=== PATIENT | male | born 1945 | race Caucasian/White ===

== ENCOUNTER 2024-07-27 14:21 | Outpatient (AMB) | payer OTHER, SELFPAY ==
--- NOTE | 2024-07-27 14:23 | A.OFFVIS_ITS ---
Vital Signs 07/27/24 14:29 Height 5 ft 11 in BP 118/76 Blood Pressure Location Rt brachial Position Sitting Pulse 54 Pulse Source Pulse Oximeter Pulse Oximetry (%) 98 Oxygen Delivery Method Room Air Intake Visit Reasons: E-IMPLEMENTATION PROJECT COORDINATOR: Parkinson's Intake Note: [facility] Allergies pravastatin Allergy (Unknown, Verified 07/27/24 14:26) Unknown simvastatin Allergy (Unknown, Verified 07/27/24 14:26) Unknown Medication List - Last Reconciled 07/27/24 by Maritza Otto MD atorvastatin 40 mg PO DAILY B-complex with vitamin C 1 cap PO DAILY carbidopa-levodopa 25-100 mg 2 tabs PO QID cholecalciferol (vitamin D3) 25 mcg PO DAILY lisinopril 10 mg PO DAILY mirtazapine 15 mg PO BEDTIME sertraline 100 mg PO DAILY HPI Comments Details: 79y/o Right handed [facility]. He was diagnosed with Parkinsons [address] Carrero at [facility] . His initia l symptoms were slowness , difficulty with movements and mild tremor sleft more than right. After Dr. Carrero left the practice and he started going to [facility] for Ilan Larson. His symptoms has worsened and now he has frequent falls.He uses a walker and still falls. Memory- mild short term issues. No hallucinations SLeep- loud snoring , excessive daytime fatigue 1 nap -20-30min, He used to have leg movements. No vivid dreams Mood-good SPeech- softer Drooling at night Swallowing - mild , coughs more Handwriting- small Dressing and showering- uses a shower chair and needs help Needs help with utensils He has on and off dizziness - 2 episodes of passing out - He has ostomy bag - Colon ca - 5 years ago - recurrence 18 mths ago .No chemo He was in [place] and exposed to [employer]. He used Round up in his lawn He has constipation - drinks 8 glasses.He takes miralax qd. [facility] Medical History (Updated 07/27/24 @ 15:09 by Maritza Otto MD) Parkinson's disease with neurogenic orthostatic hypotension PTSD (post-traumatic stress disorder) Fuentes syndrome Lung nodule HTN (hypertension) Hyperlipidemia Glaucoma Depression Carcinoma of colon Arthritis Anxiety Surgical History H/O right knee surgery H/O hemicolectomy Family History Father Cancer, colon Brother Cancer, colon Paternal Uncle History of cancer Social History Alcohol intake: current Patient Tobacco Use Status: Former Tobacco user Physical Exam Vital Signs: Last Vital Signs Pulse 54 07/27/24 14:29 BP 118/76 07/27/24 14:29 Pulse Ox 98 07/27/24 14:29 Oxygen Delivery Method Room Air 07/27/24 14:29 Const General: cooperative, comfortable and no acute distress Nutritional Appearance: average body habitus Orientation/consciousness: patient oriented x3 Neuro Other: asymmetry face - due to jaw issues Mild decreased facial expression and blink No tremors No cog wheel rigidity - UE Le increased tone FFM mild decreased Foot taps severely decreased Speech- hypophonia , Gait with cane slow , stooped , small steps and off balance, high risk of falls General: patient oriented x3, moves all extremities and no focal motor deficits Cranial nerves: Yes Facial sensation intact/muscles of mastication intact, Yes Bilaterally intact EOM present, Yes Nystagmus not present, Yes Normal facial strength present, Yes Midline tongue present and Yes Ability to bilaterally elevate shoulders present Cognition (Neuro): normal cognition Motor exam (neuro): 5/5 motor strength present throughout Deep tendon reflexes (DTR's): Right triceps reflex intensity grade: 2+, Left triceps reflex intensity grade: 2+, Rt Biceps (C5, C6): 2+, Left biceps reflex intensity grade: 2+, Right brachioradialis reflex intensity grade: 2+, Left brachioradialis reflex intensity grade: 2+, Right patellar reflex intensity grade: 3+ and Left patellar reflex intensity grade: 3+ Coordination: [id number]-vl-[id number] test normal Assessment & Plan Assessment & Plan (1) Parkinson's disease with neurogenic orthostatic hypotension: Code(s): G90.3 - Multi-system degeneration of the autonomic nervous system Category: Medical Plan Change carbidopa/levodopa 25/100 1 1/2 tab 9am,12 noon,3pm,6pm,10pm He will be a good patient for Vyalev - to prevent fluctuations MRI report from [facility] PT - for gait training Orders: Orders PT Evaluation and Treatment Today G90.3 - Multi-system degeneration of the autonomic nervous system Coding Level of Care Code New Pt Level 4 (66692) Complex EM visit Add On G2211 Diagnoses Parkinson's disease with neurogenic orthostatic hypotension G90.3
[2024-07-27 14:29] VITALS: BP 118/76; PULSE 54; O2SAT 98
== END 2024-07-27 15:25 | disposition home or self-care (01) ==
LOC: HO.HSMS 14:21
PROVIDERS: PCP Internal Medicine; Visit Provider Psychiatry & Neurology Neurology
DX: G90.3 Multi-system degeneration of the autonomic nervous system (principal)
CPT/HCPCS: 99204; G2211

== ENCOUNTER → 2024-07-27 14:21 | Outpatient (BNVA) | payer OTHER, SELFPAY | PROVIDERS: PCP Internal Medicine; Visit Provider Psychiatry & Neurology Neurology | DX: G90.3 Multi-system degeneration of the autonomic nervous system (principal) | CPT/HCPCS: 99202 ==

== ENCOUNTER → 2024-10-12 10:00 | Outpatient (REF) | payer OTHER, SELFPAY | LOC: HO.SL 10:00 | PROVIDERS: PCP Internal Medicine; Referring Provider Psychiatry & Neurology Neurology; Visit Provider Psychiatry & Neurology Neurology | DX: G47.33 Obstructive sleep apnea (adult) (pediatric) (principal); R06.83 Snoring; G47.10 Hypersomnia, unspecified | CPT/HCPCS: 95806 ==

== ENCOUNTER → 2024-10-12 10:28 | Outpatient (BNV) | payer OTHER, SELFPAY | PROVIDERS: PCP Internal Medicine; Visit Provider Internal Medicine | DX: G47.33 Obstructive sleep apnea (adult) (pediatric) (principal) | CPT/HCPCS: 95806 ==

== ENCOUNTER 2024-11-23 14:54 | Outpatient (AMB) | payer OTHER, SELFPAY ==
--- NOTE | 2024-11-23 14:55 | A.OFFVIS_ITS ---
Vital Signs 11/23/24 14:56 Height 5 ft 11 in Weight 151 lb 6 oz BMI 21.1 BP 122/74 Blood Pressure Location Rt brachial Position Sitting Pulse 52 Pulse Source Pulse Oximeter Pulse Oximetry (%) 99 Oxygen Delivery Method Room Air Intake Visit Reasons: 4mon follow-up Intake Note: Follow up Parkinson's disease with neurogenic orthostatic hypotension Fashion Director Party Plan Sales Required: No Accompanied by: Spouse Allergies pravastatin Allergy (Unknown, Verified 11/23/24 14:56) Unknown simvastatin Allergy (Unknown, Verified 11/23/24 14:56) Unknown Medication List - Last Reconciled 11/23/24 by Maritza Otto MD atorvastatin 40 mg PO DAILY B-complex with vitamin C 1 cap PO DAILY carbidopa-levodopa 25-100 mg 2 tabs PO QID cholecalciferol (vitamin D3) 25 mcg PO DAILY lisinopril 5 mg PO DAILY mirtazapine 15 mg PO BEDTIME sertraline 100 mg PO DAILY HPI Comments Details: 79y/o Right handed male comes follow up of Parkinsons disease. He had 2 fall when he was not using his walker. Home sleep test- 10/17/24 AHI 31/hr O2 emma 63 % He still has stooping , more freezing periods .His BP med was decreased to 5 mg lisinopril He has lost some weight Mood- stable Memory- good History from initial visit-He was diagnosed with Parkinsons [address] Carrero at [facility] . His initial symptoms were slowness , difficulty with movements and mild tremor sleft more than right. After Dr. Carrero left the practice and he started going to [facility] for Ilan Larson. His symptoms has worsened and now he has frequent falls.He uses a walker and still falls. Memory- mild short term issues. No hallucinations SLeep- loud snoring , excessive daytime fatigue 1 nap -20-30min, He used to have leg movements. No vivid dreams Mood-good SPeech- softer Drooling at night Swallowing - mild , coughs more Handwriting- small Dressing and showering- uses a shower chair and needs help Needs help with utensils He has on and off dizziness - 2 episodes of passing out - He has ostomy bag - Colon ca - 5 years ago - recurrence 18 mths ago .No chemo He was in [place] and exposed to [employer] [place]. He used Round up in his lawn He has constipation - drinks 8 glasses.He takes miralax qd. [facility] Medical History (Updated 11/23/24 @ 15:18 by Maritza tOto MD) Obstructive sleep apnea hypopnea, severe Parkinson's disease with neurogenic orthostatic hypotension PTSD (post-traumatic stress disorder) Fuentes syndrome Lung nodule HTN (hypertension) Hyperlipidemia Glaucoma Depression Carcinoma of colon Arthritis Anxiety Surgical History H/O right knee surgery H/O hemicolectomy Family History Father Cancer, colon Brother Cancer, colon Paternal Uncle History of cancer Social History Alcohol intake: current Patient Tobacco Use Status: Former Tobacco user Physical Exam Vital Signs: Last Vital Signs Pulse 52 11/23/24 14:56 BP 122/74 11/23/24 14:56 Pulse Ox 99 11/23/24 14:56 Oxygen Delivery Method Room Air 11/23/24 14:56 BMI result Body Mass Index 21.1 Const General: cooperative, comfortable and no acute distress Nutritional Appearance: average body habitus Orientation/consciousness: patient oriented x3 Neuro Other: asymmetry face - due to jaw issues Mild decreased facial expression and blink No tremors No cog wheel rigidity - UE Le increased tone FFM mild decreased Foot taps severely decreased Speech- hypophonia , Gait with cane slow , stooped , small steps and off balance, high risk of falls General: patient oriented x3, moves all extremities and no focal motor deficits Cranial nerves: Yes Facial sensation intact/muscles of mastication intact, Yes Bilaterally intact EOM present, Yes Nystagmus not present, Yes Normal facial strength present, Yes Midline tongue present and Yes Ability to bilaterally elevate shoulders present Cognition (Neuro): normal cognition Motor exam (neuro): 5/5 motor strength present throughout Coordination: [id number]-ap-hzud test normal Assessment & Plan Assessment & Plan (1) Parkinson's disease with neurogenic orthostatic hypotension: Code(s): G90.3 - Multi-system degeneration of the autonomic nervous system Category: Medical (2) Obstructive sleep apnea hypopnea, severe: Comment: ahi 30 O2 emma 63 Code(s): G47.33 - Obstructive sleep apnea (adult) (pediatric) Category: Medical Plan carbidopa/levodopa 25/100 2 tab qid He will be a good patient for Vyalev - to prevent fluctuations- he has frequent unpredictable OFF periods MRI report from [facility] PT - continue exercises Reviewed sleep study results - start CPAP 5-20 cm of water Medications: Changed From carbidopa-levodopa 25-100 mg 2 tabs PO QID To carbidopa-levodopa 25-100 mg 2 tabs PO QID 240 tabs 6RF Coding Level of Care Code Est Pt Level 4 (53912) Complex EM visit Add On G2211 Diagnoses Parkinson's disease with neurogenic orthostatic hypotension G90.3 Obstructive sleep apnea hypopnea, severe G47.33
[2024-11-23 14:56] VITALS: BP 122/74; PULSE 52; O2SAT 99; BMI 21.1
--- OUTSIDE RECORDS SUMMARY | 2024-11-23 18:37 | XMS_ITS | Encounter Summary ---
Author Organization [facility] Address [address] [place] [address] Phone Care Team Providers Care Supervisor Lens Generating Name Role Phone Selwyn Noel MD Unavailable [phone] Andi Cline MD Unavailable [phone] Dagoberto Delgado MD Unavailable [phone] Abdulkadir Gaming MD Primary Care Provider [phone] Kerry Reyes DO Primary Care Provider Encounter Details Date Type Department Care Team (Late st Contact Info) Description 06/22/2020 Procedure Pass [facility] [address] [place] [address] Social History Tobacco Use Types Packs/Day Years Used Date Smoking Tobacco: Former Cigarettes 1 8 Smokeless Tobacco: Never Comments:quit in 1969 Alcohol Use Standard Drinks/Week Comments No 0 (1 standard drink = 0.6 oz pur e alcohol) Comments Unknown Sex and Gender Information Value Date Recorded Sex Assigned at Not recorded on cert ificate 07/18/2024 6:06 AM EDT Legal Sex Male 4:19 PM EDT Gender Identity Genderqueer/Queer 07/18/2024 6:0 6 AM EDT Sexual Orientation Straight 02/16/2017 10 :22 AM EST documented as of this encounter Plan of Treatment Upcoming Encounters Date Type Department Care Team (Late st Contact Info) Description 08/24/2025 11:00 AM EDT [facility] [place] [facility] [place] [address] [address] Selwyn Noel MD [address] [place] [address] [email or web address] documented as of this encounter Visit Diagnoses Not on filedocumented in this encounter Care Teams Supervisor Lens Generating Relationship Specialty Start Date End Date Abdulkadir Gaming MD [address] [place] [address] PCP - General Internal Medicine 07/24/17 07/01/23 Kerry Reyes DO [address] [place] [address] PCP - General Internal Medicine 07/02/23 Selwyn Noel MD [email or web address] Primary Oncologist Medical Oncology 10/06/16 Andi Cline MD [address] [place] [address] 3rd [facility] [place] [address] [email or web address] Referring Physician General Surgery 10/28/16 Dagoberto Delgado MD [address] [place] [address] [email or web address] 10/28/16 documented as of this encounter Additional Source Comments The information contained in this document represents components of the legal health record. It is not the complete legal health record.[facility]
--- OUTSIDE RECORDS SUMMARY | 2024-11-23 18:37 | XMS_ITS | Encounter Summary ---
Author Organization [facility] Address [address] [place] [address] Phone Care Team Providers Care Naturopathic Physician Name Role Phone Selwyn Noel MD Unavailable [phone] Andi Cline MD Unavailable [phone] Dagoberto Delgado MD Unavailable [phone] Abdulkadir Gaming MD Primary Care Provider [phone] Kerry Reyes DO Primary Care Provider Encounter Details Date Type Department Care Team (Late st Contact Info) Description 12/23/2018 Procedure Pass [facility] Endoscopy Admitting Dept [facility] Department [address] [place] [address] Social History Tobacco Use Types Packs/Day Years [...] [facility], [facility] [place] [facility] [place] [address] [address] Selwyn Noel MD [address] [place] [address] [email or web address] documented as of this encounter Visit Diagnoses Not on filedocumented in this encounter Care Teams Naturopathic Physician Relationship Specialty Start Date End Date Abdulkadir Gaming MD [address] [place] [address] PCP - General Internal Medicine 07/24/17 07/01/23 Kerry Reyes DO [address] [place] [address] PCP - General Internal Medicine 07/02/23 Selwyn Noel MD [email or web address] Primary Oncologist Medical Oncology 10/06/16 Andi Cline MD [address] [place] [address] 3rd [facility] [place] [address] [email or web address] Referring Physician General Surgery 10/28/16 Dagoberto Delgado MD [address] [place] [address] [email or web address] 10/28/16 documented as of this encounter Additional Source Comments The information contained in this document represents components of the legal health record. It is not the complete legal health record.[facility]
--- OUTSIDE RECORDS SUMMARY | 2024-11-23 18:37 | XMS_ITS | Encounter Summary ---
Author Organization [facility] Address [address] [place] [address] Phone Care Team Providers Care Breakfast Hostess Name Role Phone Selwyn Noel MD Unavailable [phone] Andi Cline MD Unavailable [phone] Dagoberto Delgado MD Unavailable [phone] Abdulkadir Gaming MD Primary Care Provider [phone] Kerry Reyes DO Primary Care Provider [phone] Encounter Details Date Type Department Care Team (Late st Contact Info) Description 11/09/2018 Procedure Pass [facility] Endoscopy Department [address] [place] [address] Social History Tobacco Use Types Packs/Day Years [...] AM EDT [facility], [facility] [place] [facility] [place] 300 [facility] [address] [place] [address] Selwyn Noel MD [address] [place] [address] [email or web address] documented as of this encounter Visit Diagnoses Not on filedocumented in this encounter Care Teams Breakfast Hostess Relationship Specialty Start Date End Date Abdulkadir Gaming MD [address] [place] [address] PCP - General Internal Medicine 07/24/17 07/01/23 Kerry Reyes DO [address] [place] [address] PCP - General Internal Medicine 07/02/23 Selwyn Noel MD [email or web address] Primary Oncologist Medical Oncology 10/06/16 Andi Cline MD [address] [place] [address] [place] [address] [email or web address] Referring Physician General Surgery 10/28/16 Dagoberto Delgado MD [address] [place] [address] 10/28/16 documented as of this encounter Additional Source Comments The information contained in this document represents components of the legal health record. It is not the complete legal health record.[facility]
--- OUTSIDE RECORDS SUMMARY | 2024-11-23 18:37 | XMS_ITS | Encounter Summary ---
Author Organization [facility] Address [address] [place] [address] Phone Care Team Providers Care Job Lithographer Name Role Phone Selwyn Noel MD Unavailable [phone] Andi Cline MD Unavailable [phone] Dagoberto Delgado MD Unavailable [phone] Abdulkadir Gaming MD Primary Care Provider [phone] Kerry Reyes DO Primary Care Provider [phone] Encounter Details Date Type Department Care Team (Late st Contact Info) Description 10/07/2019 Procedure Pass [facility], Ct Scan - [address] [address] Social History Tobacco Use Types Packs/Day Years [...] AM EDT [facility], [facility] [place] [facility] [place] 300 [facility] 4th [place] [address] Selwyn Noel MD [address] [place] [address] [email or web address] documented as of this encounter Visit Diagnoses Not on filedocumented in this encounter Care Teams Job Lithographer Relationship Specialty Start Date End Date Abdulkadir Gaming MD [address] [place] [address] PCP - General Internal Medicine 07/24/17 07/01/23 Kerry Reyes DO [address] [place] [address] PCP - General Internal Medicine 07/02/23 Selwyn Noel MD [email or web address] Primary Oncologist Medical Oncology 10/06/16 Andi Cline MD [address] [place] [address] 3rd [facility] [place] [address] [email or web address] Referring Physician General Surgery 10/28/16 Dagoberto Delgado MD [address] [place] [address] [email or web address] 10/28/16 documented as of this encounter Additional Source Comments The information contained in this document represents components of the legal health record. It is not the complete legal health record.[facility]
--- OUTSIDE RECORDS SUMMARY | 2024-11-23 18:37 | XMS_ITS | Encounter Summary ---
Author Organization [facility] Address [address] [place] [address] Phone Care Team Providers Care Court Commissioner Name Role Phone Selwyn Noel MD Unavailable [phone] Andi Cline MD Unavailable [phone] Dagoberto Delgado MD Unavailable [phone] Abdulkadir Gaming MD Primary Care Provider [phone] Kerry Reyes DO Primary Care Provider [phone] Encounter Details Date Type Department Care Team (Late st Contact Info) Description 11/11/2021 Procedure Pass [facility] Endoscopy Admitting Dept Virtual Department [address] [place] [id number] Social History Tobacco Use Types Packs/Day Years [...] [facility], [facility] [place] [facility] [place] [address] [address] Selwyn Noel MD [address] [place] [address] [email or web address] documented as of this encounter Visit Diagnoses Not on filedocumented in this encounter Care Teams Court Commissioner Relationship Specialty Start Date End Date Abdulkadir Gaming MD [address] [place] [address] PCP - General Internal Medicine 07/24/17 07/01/23 Kerry Reyes DO [address] [place] [address] PCP - General Internal Medicine 07/02/23 Selwyn Noel MD [email or web address] Primary Oncologist Medical Oncology 10/06/16 Andi Cline MD [address] [place] [address] 3rd [facility] [place] [address] [email or web address] Referring Physician General Surgery 10/28/16 Dagoberto Delgado MD [address] [place] [address] 10/28/16 documented as of this encounter Additional Source Comments The information contained in this document represents components of the legal health record. It is not the complete legal health record.[facility]
--- OUTSIDE RECORDS SUMMARY | 2024-11-23 18:37 | XMS_ITS | Encounter Summary ---
Author Organization [facility] Address [address] [place] [address] Phone Care Team Providers Care Aircraft Systems Repairer Name Role Phone Selwyn Noel MD Unavailable [phone] Andi Cline MD Unavailable [phone] Dagoberto Delgado MD Unavailable [phone] Abdulkadir Gaming MD Primary Care Provider [phone] Kerry Reyes DO Primary Care Provider Encounter Details Date Type Department Care Team (Late st Contact Info) Description 07/24/2017 Procedure Pass [facility], [facility] [place], MRI [address] [address] Social History Tobacco Use Types Packs/Day Years Used Date Smoking Tobacco: Former Cigarettes 1 8 Smokeless Tobacco: Never Comments:quit in 1970 Alcohol Use Standard Drinks/Week Comments No 0 [...] [facility], [facility] [place] [facility] [place] 300 [facility] 4th [place] [address] Selwyn Noel MD [address] [place] [address] [email or web address] documented as of this encounter Visit Diagnoses Not on filedocumented in this encounter Care Teams Aircraft Systems Repairer Relationship Specialty Start Date End Date Abdulkadir Gaming MD [address] [place] [address] PCP - General Internal Medicine 07/24/17 07/01/23 Kerry Reyes DO [address] [place] [address] PCP - General Internal Medicine 07/02/23 Selwyn Noel MD [email or web address] Primary Oncologist Medical Oncology 10/06/16 Andi Cline MD [address] [place] [address] 3rd [facility] [place] [address] [email or web address] Referring Physician General Surgery 10/28/16 Dagoberto Delgado MD [address] [place] [address] [email or web address] 10/28/16 documented as of this encounter Additional Source Comments The information contained in this document represents components of the legal health record. It is not the complete legal health record.[facility]
--- OUTSIDE RECORDS SUMMARY | 2024-11-23 18:38 | XMS_ITS | Encounter Summary ---
Author Organization [facility] Address [address] [place] [address] Phone Care Team Providers Care Chip Mixing Machine Operator Name Role Phone Reginald Delgado MD Primary Care Provider [phone] Selwyn Noel MD Unavailable [phone] Andi Cline MD Unavailable [phone] Dagoberto Delgado MD Unavailable [phone] Abdulkadir Gaming MD Primary Care Provider [phone] [place] Reyes DO Primary Care Provider [phone] Encounter Details Date Type Department Care Team (Late st Contact Info) Description 01/23/2017 Procedure Pass [facility], [facility] [place] 450 [facility], Floor L1 [place] [address] Social History Tobacco Use Types Packs/Day Years [...] AM EDT [facility], [facility] [place] [facility] [place] [address] [address] Selwyn Noel MD [address] [place] [address] [email or web address] documented as of this encounter Visit Diagnoses Not on filedocumented in this encounter Care Teams Chip Mixing Machine Operator Relationship Specialty Start Date End Date Reginald Delgado MD PCP - General Internal Medicine 07/30/16 04/16/17 Abdulkadir Gaming MD [address] [place] [address] PCP - General Internal Medicine 07/24/17 07/01/23 [place] Reyes DO [address] [place] [address] PCP - General Internal Medicine 07/02/23 Selwyn Noel MD [email or web address] Primary Oncologist Medical Oncology 10/06/16 Andi Cline MD [address] [place] [address] [place] [address] [email or web address] Referring Physician General Surgery 10/28/16 Dagoberto Delgado MD [address] [address] [email or web address] 10/28/16 documented as of this encounter Additional Source Comments The information contained in this document represents components of the legal health record. It is not the complete legal health record.[facility]
--- OUTSIDE RECORDS SUMMARY | 2024-11-23 18:38 | XMS_ITS | Encounter Summary ---
Author Organization [facility] Address [address] [place] [address] Phone Care Team Providers Care Client Business Manager Name Role Phone Selwyn Noel MD Unavailable [phone] Andi Cline MD Unavailable [phone] Dagoberto Delgado MD Unavailable [phone] Abdulkadir Gaming MD Primary Care Provider [phone] [place] Reyes DO Primary Care Provider Encounter Details Date Type Department Care Team (Late Contact Info) Description 02/17/[address] [facility], Ct Scan - [address] [address] Social History Tobacco Use Types Packs/Day Years [...] Encounters Date Type Department Care Team (Late Contact Info) Description 08/24/2025 11:00 AM EDT [facility], [facility] [facility] [place] [facility] [place] [address] [address] Selwyn Noel MD 450 [place] [address] [email or web address] documented as of this encounter Visit Diagnoses Not on filedocumented in this encounter Care Teams Client Business Manager Relationship Specialty Start Date End Date Abdulkadir Gaming MD [address] [place] [address] PCP - General Internal Medicine 07/24/17 07/01/23 [place] Reyes DO [address] [place] [address] PCP - General Internal Medicine 07/02/23 Selwyn Noel MD [email or web address] Primary Oncologist Medical Oncology 10/06/16 Andi Cline MD [address] [place] [address] [place] [address] [email or web address] Referring Physician General Surgery 10/28/16 Dagoberto Delgado MD [address] [place] [address] [email or web address] 10/28/16 documented as of this encounter Additional Source Comments The information contained in this document represents components of the legal health record. It is not the complete legal health record.[facility]
--- OUTSIDE RECORDS SUMMARY | 2024-11-23 18:38 | XMS_ITS | Encounter Summary ---
Author Organization [facility] Address [address] [place] [address] Phone Care Team Providers Care Curator Of Photography And Prints Name Role Phone Self-Referred, Patient Unavailable Unavailab Reginald Lord MD Primary Care Provider [phone] Selwyn Noel MD Unavailable [phone] Andi Cline MD Unavailable [phone] Dagoberto Delgado MD Unavailable [phone] Abdulkadir Gaming MD Primary Care Provider [phone] [place] Reyes DO Primary Care Provider Encounter Details Date Type Department Care Team (Late st Contact Info) Description 08/05/2016 Procedure Pass [facility] Imaging, [place] [address] [place] [address] Social History Tobacco Use Types Packs/Day Years Used Date Smoking Tobacco: Former Cigarettes 1 8 Comments:quit in 1970 Alcohol Use Standard Drinks/Week [...] AM EDT [facility], [facility] [place] [facility] [place] 300 [facility] 4th [place] [address] Selwyn Noel MD [address] [place] [address] Joao@[email or web address] documented as of this encounter Visit Diagnoses Not on filedocumented in this encounter Care Teams Curator Of Photography And Prints Relationship Specialty Start Date End Date Reginald Delgado MD PCP - General Internal Medicine 07/30/16 04/16/17 Abdulkadir Gaming MD [address] [place] [address] PCP - General Internal Medicine 07/24/17 07/01/23 Kerry Reyes DO [address] [place] [address] PCP - General Internal Medicine 07/02/23 Self-Referred, Patient Referring Physician 07/28/16 Selwyn Noel MD [email or web address] Primary Oncologist Medical Oncology 10/06/16 Andi Cline MD [address] [place] [address] [place] [address] [email or web address] Referring Physician General Surgery 10/28/16 Dagoberto Delgado MD [address] [place] [address] [email or web address] 10/28/16 documented as of this encounter Additional Source Comments The information contained in this document represents components of the legal health record. It is not the complete legal health record.[facility]
--- OUTSIDE RECORDS SUMMARY | 2024-11-23 18:38 | XMS_ITS | Encounter Summary ---
Author Organization [facility] Address [address] [place] [address] Phone Care Team Providers Care Sheet Metal Superintendent Name Role Phone Self-Referred, Patient Unavailable Unavailab Reginald Lord MD Primary Care Provider [phone] Selwyn Noel MD Unavailable [phone] Andi Cline MD Unavailable [phone] Dagoberto Delgado MD Unavailable [phone] Abdulkadir Gaming MD Primary Care Provider [phone] Kerry Reyes DO Primary Care Provider Encounter Details Date Type Department Care Team (Late st Contact Info) Description 08/05/2016 Procedure Pass [facility] CT Imaging, [place] [address] [place] [address] Social History Tobacco Use Types Packs/Day Years [...] AM EDT [facility], [facility] [place] [facility] [place] 300 [facility] 4th [place] [address] Selwyn Noel MD [address] [place] [address] [email or web address] documented as of this encounter Visit Diagnoses Not on filedocumented in this encounter Care Teams Sheet Metal Superintendent Relationship Specialty Start Date End Date Reginald Delgado MD PCP - General Internal Medicine 07/30/16 04/16/17 Abdulkadir Gaming MD [address] [place] [address] PCP - General Internal Medicine 07/24/17 07/01/23 Kerry Reeys DO [address] [place] [address] PCP - General Internal Medicine 07/02/23 Self-Referred, Patient Referring Physician 07/28/16 Selwyn Noel MD [email or web address] Primary Oncologist Medical Oncology 10/06/16 Andi Cline MD [address] [place] [address] [place] [address] [email or web address] Referring Physician General Surgery 10/28/16 Dagoberto Delgado MD [address] [place] [address] [email or web address] 10/28/16 documented as of this encounter Additional Source Comments The information contained in this document represents components of the legal health record. It is not the complete legal health record.[facility]
--- OUTSIDE RECORDS SUMMARY | 2024-11-23 18:38 | XMS_ITS | Encounter Summary ---
Author Organization [facility] Address [address] [place] [address] Phone Care Team Providers Care Traffic Police Officer Name Role Phone Selwyn Noel MD Unavailable [phone] Andi Cline MD Unavailable [phone] Dagoberto Delgado MD Unavailable [phone] Abdulkadir Gaming MD Primary Care Provider [phone] [place] Reyes DO Primary Care Provider [phone] Encounter Details Date Type Department Care Team (Late Contact Info) Description 02/17/2020 Procedure Pass [facility], Ct Scan - [address] [address] Social History Tobacco Use Types Packs/Day Years [...] AM EDT [facility], [facility] [place] [facility] [place] [address] [address] Selwyn Noel MD 450 [place] [address] Joao@[email or web address] documented as of this encounter Visit Diagnoses Not on filedocumented in this encounter Care Teams Traffic Police Officer Relationship Specialty Start Date End Date Abdulkaidr Gaming MD [address] [place] [address] PCP - General Internal Medicine 07/24/17 07/01/23 Kerry Reyes DO [address] [place] [address] PCP - General Internal Medicine 07/02/23 Selwyn Noel MD [email or web address] Primary Oncologist Medical Oncology 10/06/16 Andi Cline MD [address] [place] [address] [place] [address] [email or web address] Referring Physician General Surgery 10/28/16 Dagoberto Delgado MD [address] [place] [address] [email or web address] 10/28/16 documented as of this encounter Additional Source Comments The information contained in this document represents components of the legal health record. It is not the complete legal health record.[facility]
--- OUTSIDE RECORDS SUMMARY | 2024-11-23 18:38 | XMS_ITS | Encounter Summary ---
Author Organization [facility] Address [address] [place] [address] Phone Care Team Providers Care Collection Systems Modeler Name Role Phone Selwyn Noel MD Unavailable [phone] Andi Cline MD Unavailable [phone] Dagoberto Delgado MD Unavailable [phone] Abdulkadir Gaming MD Primary Care Provider [phone] Kerry Reyes DO Primary Care Provider Encounter Details Date Type Department Care Team (Late Contact Info) Description 10/05/2020 Procedure Pass [facility], Ct Scan - [address] [address] Social History Tobacco Use Types Packs/Day Years [...] AM EDT Tele[facility], [facility] [facility] [place] [facility] [place] [address] [address] Selwyn Noel MD 450 [place] [address] Joao@[email or web address] documented as of this encounter Visit Diagnoses Not on filedocumented in this encounter Care Teams Collection Systems Modeler Relationship Specialty Start Date End Date Abdulkadir Gaming MD [address] [place] [address] PCP - General Internal Medicine 07/24/17 07/01/23 Kerry Reyes DO [address] [place] [address] PCP - General Internal Medicine 07/02/23 Selwyn Noel MD [email or web address] Primary Oncologist Medical Oncology 10/06/16 Andi Cline MD [address] [place] [address] [place] [address] [email or web address] Referring Physician General Surgery 10/28/16 Dagoberto Delgado MD [address] [place] [address] [email or web address] 10/28/16 documented as of this encounter Additional Source Comments The information contained in this document represents components of the legal health record. It is not the complete legal health record.[facility]
--- OUTSIDE RECORDS SUMMARY | 2024-11-23 18:38 | XMS_ITS | Encounter Summary ---
Author Organization [facility] Address [address] [place] [address] Phone Care Team Providers Care Optical Effects Line Up Person Name Role Phone Self-Referred, Patient Unavailable Unavailab Reginald Lord MD Primary Care Provider [phone] Selwyn Noel MD Unavailable [phone] Andi Cline MD Unavailable [phone] Dagoberto Delgado MD Unavailable [phone] Abdulkadir Gaming MD Primary Care Provider + [phone] [place] Reyes DO Primary Care Provider [phone] Reason for Referral * MRI/CAT Scan - Closed Specialty Diagnoses / Procedures Referred By Contranulfo t Referred To Contact Procedures CT Chest Outside (No Interpretation) Andi Cline MD Phone: tel: fax: mailto:[email or web address] Referral ID Status Reason Start Date Expiration Date Visits Re quested Visits Authorized [id number] Closed 08/08/2016 08/08/2017 1 1 Encounter Details Date Type Department Care Team (Late st Contact Info) Description 08/08/2016 Transcribe Orders [facility] [address] [place] [address] Nikole [place] 1620 [place] [address] [email or web address] Social History Tobacco Use Types Packs/Day Years [...] [facility], [facility] [place] [facility] [place] [address] [address] Selwyn Noel MD 450 [place] [address] [email or web address] documented as of this encounter Results * CT Chest Outside (No Interpretation) (08/08/2016 12:00 AM EDT) Narrative ADILENE - 08/08/2016 12:13 PM EDT This study is for PACS storage only and not for interpretation. us Andi Cline MD IMG OUTSIDE IMAGING W/OUT INTER PRETATION Final Result [facility] documented in this encounter Visit Diagnoses Not on filedocumented in this encounter Care Teams Optical Effects Line Up Person Relationship Specialty Start Date End Date Reginald Delgado MD PCP - General Internal Medicine 07/30/16 04/16/17 Abdulkadir Gaming MD [address] [place] [address] PCP - General Internal Medicine 07/24/17 07/01/23 [place] Reyes DO 421 [place] [address] PCP - General Internal Medicine 07/02/23 Self-Referred, Patient Referring Physician 07/28/16 Selwyn Noel MD [email or web address] Primary Oncologist Medical Oncology 10/06/16 Andi Cline MD [address] [place] [address] [facility] [address] [email or web address] Referring Physician General Surgery 10/28/16 Dagoberto Delgado MD [address] [place] [address] [email or web address] 10/28/16 documented as of this encounter Additional Source Comments The information contained in this document represents components of the legal health record. It is not the complete legal health record.[facility]
--- OUTSIDE RECORDS SUMMARY | 2024-11-23 18:38 | XMS_ITS | Encounter Summary ---
Author Organization [facility] Address [address] [facility] [address] [place] [address] Phone Care Team Providers Care Wireless Network Engineer Name Role Phone Selwyn Noel MD Unavailable [phone] Andi Cline MD Unavailable [phone] Dagoberto Delgado MD Unavailable [phone] Abdulkaidr Gaming MD Primary Care Provider [phone] [place] Reyes DO Primary Care Provider Encounter Details Date Type Department Care Team (Latest Contact Info) Description 05/18/2020 Ancillary Orders [facility] [address] 3rd Floor [place], [place] [phone] Jose Eduardo Cates DO [address] [facility] [address] [place] [address] [email or web address] Claudication in peripheral vascular disease Social History Tobacco Use Types Packs/Day Years [...] AM EDT Tele[facility], [facility] [place] [facility] [place] 300 [facility] 4th [place] [address] Selwyn Noel MD [address] [place] [address] [email or web address] documented as of this encounter Results * US Lower Extremity Arteries (HELEN) Physio Complete Unilat (05/18/2020 2:50 PM EDT) Anatomical Region Laterality Modality Ultrasound Narrative 05/24/2020 8:54 AM EDT See scanned report us Jose Eduardo A Arcoleo DO CV US VASCULAR Final Result documented in this encounter Visit Diagnoses Diagnosis Claudication in peripheral vascular disease Claudication in peripheral vascular disease documented in this encounter Care Teams Wireless Network Engineer Relationship Specialty Start Date End Date Abdulkadir Gaming MD [address] [place] [address] PCP - General Internal Medicine 07/24/17 07/01/23 [place] Reyes DO [address] [place] [address] PCP - General Internal Medicine 07/02/23 Selwyn Noel MD [email or web address] Primary Oncologist Medical Oncology 10/06/16 Andi Cline MD 45 [facility] 3rd [place] [address] [email or web address] Referring Physician General Surgery 10/28/16 Dagoberto Delgado MD [address] [address] [email or web address] 10/28/16 documented as of this encounter Additional Source Comments The information contained in this document represents components of the legal health record. It is not the complete legal health record.[facility]
--- OUTSIDE RECORDS SUMMARY | 2024-11-23 18:38 | XMS_ITS | Encounter Summary ---
Author Organization [facility] Address [address] [place] [address] Phone Care Team Providers Care Epidemiology Investigator Name Role Phone Self-Referred, Patient Unavailable Unavailab Reginald Lord MD Primary Care Provider [phone] Selwyn Noel MD Unavailable [phone] Andi Cline MD Unavailable [phone] Dagoberto Delgado MD Unavailable [phone] Abdulkadir Gaming MD Primary Care Provider [phone] [place] Reyes DO Primary Care Provider Encounter Details Date Type Department Care Team (Late st Contact Info) Description 08/05/2016 Prep for Surgery [facility] General & GI Surgery [address] [facility] ASB2-[address] [place] [address] Rupa Michaels Social History Tobacco Use Types Packs/Day Years Used Date Smoking Tobacco: Former Comments:quit in 1970 Comments Unknown Sex and Gender Information Value [...] [facility], [facility] [place] [facility] [place] 300 [facility] 4th [place] [address] Selwyn Noel MD 450 [place] [address] [email or web address] documented as of this encounter Visit Diagnoses Not on filedocumented in this encounter Care Teams Epidemiology Investigator Relationship Specialty Start Date End Date Reginald Delgado MD PCP - General Internal Medicine 07/30/16 04/16/17 Abdulkadir Gaming MD [address] [place] [address] PCP - General Internal Medicine 07/24/17 07/01/23 Kerry Reyes DO [address] [place] [address] PCP - General Internal Medicine 07/02/23 Self-Referred, Patient Referring Physician 07/28/16 Selwyn Noel MD [email or web address] Primary Oncologist Medical Oncology 10/06/16 Andi Cline MD [address] [place] [address] [place] [address] [email or web address] Referring Physician General Surgery 10/28/16 Dagoberto Delgado MD [address] [place] [address] [email or web address] 10/28/16 documented as of this encounter Additional Source Comments The information contained in this document represents components of the legal health record. It is not the complete legal health record.[facility]
--- OUTSIDE RECORDS SUMMARY | 2024-11-23 18:38 | XMS_ITS | Encounter Summary ---
Author Organization [facility] Address [address] [place] [address] Phone Care Team Providers Care Bible Reader Name Role Phone Selwyn Noel MD Unavailable [phone] Andi Cline MD Unavailable [phone] Dagoberto Delgado MD Unavailable [phone] Abdulkadir Gaming MD Primary Care Provider [phone] [place] Reyes DO Primary Care Provider Encounter Details Date Type Department Care Team (Late st Contact Info) Description 10/02/2017 Procedure Pass [facility] Admitting [facility] Department [address] [place] [address] Social History Tobacco Use Types Packs/Day [...] [facility], [facility] [place] [facility] [place] [address] [address] Selwyn Noel MD 450 [place] [address] [email or web address] documented as of this encounter Visit Diagnoses Not on filedocumented in this encounter Care Teams Bible Reader Relationship Specialty Start Date End Date Abdulkadir Gaming MD 421 [place] [address] PCP - General Internal Medicine 07/24/17 07/01/23 [place] Reyes DO [address] [place] [address] PCP - General Internal Medicine 07/02/23 Selwyn Noel MD [email or web address] Primary Oncologist Medical Oncology 10/06/16 Andi Cline MD [address] [place] [address] 3rd [facility] [place] [address] [email or web address] Referring Physician General Surgery 10/28/16 Dagoberto Delgado MD [address] [place] [address] [email or web address] 10/28/16 documented as of this encounter Additional Source Comments The information contained in this document represents components of the legal health record. It is not the complete legal health record.[facility]
--- OUTSIDE RECORDS SUMMARY | 2024-11-23 18:38 | XMS_ITS | Encounter Summary ---
Author Organization [facility] Address [address] [place] [address] Phone Care Team Providers Care Photoengraving Sketch Maker Name Role Phone Self-Referred, Patient Unavailable Unavailab Reginald Lord MD Primary Care Provider [phone] Selwyn Noel MD Unavailable [phone] Andi Cline MD Unavailable [phone] Dagoberto Delgado MD Unavailable [phone] Abdulkadir Gaming MD Primary Care Provider [phone] Kerry Reyes DO Primary Care Provider Encounter Details Date Type Department Care Team (Late st Contact Info) Description 08/18/2016 Procedure Pass [facility] Periop [address] [place] [address] Social History Tobacco Use Types Packs/Day Years [...] AM EDT Tele[facility], [facility] [place] [facility] [place] [address] [facility] [address]th [place] [address] Selwyn Noel MD [address] [place] [address] [email or web address] documented as of this encounter Visit Diagnoses Not on filedocumented in this encounter Care Teams Photoengraving Sketch Maker Relationship Specialty Start Date End Date Reginald Delgado MD PCP - General Internal Medicine 07/30/16 04/16/17 Abdulkadir Gaming MD [address] [place] [address] PCP - General Internal Medicine 07/24/17 07/01/23 Kerry Reyes DO [address] [place] [address] PCP - General Internal Medicine 07/02/23 Self-Referred, Patient Referring Physician 07/28/16 Selwyn Noel MD [email or web address] Primary Oncologist Medical Oncology 10/06/16 Andi Cline MD [address] [place] [address] [place] [address] [email or web address] Referring Physician General Surgery 10/28/16 Dagoberto Delgado MD [address] [place] [address] [email or web address] 10/28/16 documented as of this encounter Additional Source Comments The information contained in this document represents components of the legal health record. It is not the complete legal health record.[facility]
--- OUTSIDE RECORDS SUMMARY | 2024-11-23 18:38 | XMS_ITS | Clinical Summary ---
Author Organization [facility] Address [address] [place] [address] Phone Care Team Providers Care Latent Fingerprint Examiner Name Role Phone Selwyn Noel MD Unavailable [phone] Andi Cline MD Unavailable [phone] Dagoberto Delgado MD Unavailable [phone] Kerry Reyes DO Primary Care Provider Allergies Active Allergy Reactions Criticality Noted Date Comments Pollen Extracts Sneezing Low 07/02/2021 Pravastatin Joint Pain Low 12/23/2010 Simvastatin Joint Pain Low 10/06/2008 Medications cholecalciferol (VITAMIN D3) 1,000 unit tablet Take 2,000 Units by mouth daily. Active fluoride, sodium, (PREVIDENT) 1.1 % Gel APPLY PEA SIZE AMOUNT TO TEETH ONCE DAILY NEEDED 0 Active lisinopril (PRINIVIL,ZESTRIL) 10 MG tablet Take 10 mg by mouth daily. 3 Active sertraline (ZOLOFT) 100 MG tablet Take 100 mg by mouth daily. Active mirtazapine (REMERON) 15 MG tablet Take 15 mg by mouth nightly at bedtime. Active atorvastatin (LIPITOR) 40 MG tablet Take 40 mg by mouth daily. 2 Active ketoconazole (NIZORAL) 2 % shampoo Apply topically. 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 Take 2 pills in the morning, take 2 pills at 12pm, take 2 pills at 3pm and 2 pills at 6pm 240 tablet 5 5 Active Active Problems Problem Noted Date Diagnosed Date Venous insufficiency 11/15/2020 Assessment & Plan (11/15/2020 4:47 PM EDT): Patient is status post right GSV ablation on 10/26/2020, ultrasound thereafter showed successful results, he will have another ultrasound completed at the 3-month vee, he has been wearing thigh-high compression without any incisional difficulty, he has not noticed too much of a difference just yet in the heaviness that he feels, he is interested in having the left leg completed as well which we will have scheduled for him with Dr. Golden. Claudication in peripheral vascular disease 11/09 Assessment & Plan (06/22/2020 11:25 AM EDT): Based on his venous studies that he has some venous insufficiency. He was provided with venous insufficiency and vein ablation information during his last appointment. Due to the continued bilateral leg tiredness with ambulation he would like to move forward with the ablation. We will start with his right leg. We will have the office call to schedule his ablation to the right leg with a follow-up ultrasound 1 week post ablation with a 2 to 4-week follow-up after the ablation has been completed. He would like to move forward with the left leg once everything goes well with the right leg. Prescription for EMLA cream will be sent to his pharmacy. We will see him in follow-up once the ablation has taken place. Assessment & Plan (06/08/2020 4:06 PM EDT): I am unable to see his HELEN study however his venous study shows significant venous insufficiency. He also had his cholesterol checked at the [facility] and reports to me that his LDL is still greater than 70 mg/DL. He was on atorvastatin 10 mg daily and we will increase this to 20 mg daily today to keep his LDL less than 70 mg/DL. Today he was given information of venous insufficiency and vein ablation to treat venous insufficiency. He would like some time to go over this information before making a decision to move forward with the ablation. Additionally he would like to know what Dr. Cates success rate is with his vein ablations before making a decision. He would like to have a televisit in 2 weeks to discuss more information on the venous insufficiency after he has had some time to review the information provided. Additionally he will provide us with [facility] Assessment & Plan (04/30/2020 1:07 PM EDT): As mentioned I am ordering a venous and arterial study I will see him thereafter in follow-up. Because of this LDL should be less than 70 mg/dL Assessment & Plan (11/24/2019 10:15 AM EDT): He has significant calcification the aorta he needs aggressive risk factor modification I would drive his LDL to less than 70 mg/dL. 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 Assessment & Plan (06/08/2020 4:04 PM EDT): Blood pressure in the office today was 140/80. He is on lisinopril 20 mg daily, amlodipine 5 mg daily, he will remain his medications. Assessment & Plan (04/30/2020 1:07 PM EDT): Blood pressures well controlled Assessment & Plan (11/24/2019 10:14 AM EDT): Reasonably well-controlled I would like to see his blood pressure between 120 and 130 systolic. Malignant neoplasm of ascending colon 08/18/2016 Cancer Staging:Pathologic stage from 08/18/2016:Stage IIA(T3, N0, cM0) - Signed by Selwyn Noel MD on 10/28/2016 Assessment & Plan (04/30/2020 1:07 PM EDT): In remission at this time Immunizations Immunization Administration Dates Next Due COVID-19 (Pre-12/01) Moderna Vaccine, mRNA, PF 04/17/2020,03/20/2020 DTaP, unspecified formulation 01/23/2012 [id number] FORMULATION 03/07/2009 Influenza High-Dose Quadriva lent Preservative Free IM 11/09/2019 Influenza Quadrivalent Prese rvative Free IM 11/23/2018 Influenza Quadrivalent w/ Pr eservative IM 11/30/2017 Influenza, Unspecified Formulation 10/29,11/26/2015,01/15/2015,11/15,12/13/2012,12/22/2011,10/24/2010 ,11/28/2009,11/10/2008,03/03/2008,11/09,11/09/2006,12/26/2005, 5,02/12/2004 Pneumococcal conjugate PCV13 04/12/2014 Pneumococcal polysaccharide PPSV23 06/09/2016 Pneumococcal, Unspecified Formulation 04/04/2010 ,10/25/2003 Td, unspecified formulation 10/25/2003 Zoster live 12/13/2012 Zoster recombinant 11/09/2019 Family History Medical History Relation Comments Colon cancer Brother Prostate cancer Brother Colon cancer Father Cancer Paternal Uncle Relation Status Comments Brother Father Paternal Uncle Social History Tobacco Use Types Packs/Day Years Used Date Smoking Tobacco: Former Cigarettes 1 8 Smokeless Tobacco: Never Comments:quit in 1970 Alcohol Use Standard Drinks/Week Comments No 0 (1 standard drink = 0.6 oz pur e alcohol) Education Answer Date Recorded Are you interested in more education? Not on concepcion e 06/06/2022 Are you concerned about learning? Not on file 06/06/2022 No 06/06/2022 No 06/06/2022 Digital Access Answer Date Recorded No 07/07/2022 No 07/07/2022 Reliable internet access at home? Not on file 07/07/2022 Device with a working camera? Not on file Intimate Partner Violence Answer Date R ecorded Are you denied basic needs s uch as food, clothing, or medical care? No 10/20/2023 In the past 12 months have y ou been in a relationship with a person who hurts, threatens, or tries to control you? No 10/20/2023 Are you denied basic needs s uch as food, clothing, or medical care? No 10/20/2023 In the past 12 months have y ou been in a relationship with a person who hurts, threatens, or tries to control you? No 10/20/2023 Comments Unknown Sex and Gender Information Value Date Recorded Sex Assigned at Not recorded on cert ificate 07/18/2024 6:06 AM EDT Legal Sex Male 4:19 PM EDT Gender Identity Genderqueer/Queer 07/18/2024 6:0 6 AM EDT Sexual Orientation Straight 02/16/2017 10 :22 AM EST Last Filed Vital Signs Vital Sign Reading Time Taken Comments Blood Pressure 119/80 11/12/2023 9:20 AM EDT Pulse 68 11/12/2023 9:20 AM EDT Temperature 36.9 C (98.4 F) 10/20/2023 10:00 PM EDT Respiratory Rate 18 10/20/2023 10:00 PM EDT Oxygen Saturation 100% 11/12/2023 9:20 AM EDT Inhaled Oxygen Concentration - - Weight 70.3 kg (155 lb) 10/20/2023 8:06 PM EDT Height 180.3 cm (5' 11 ) 10/20/2023 8:06 PM EDT Body Mass Index 21.62 10/20/2023 8:06 PM EDT Plan of Treatment Upcoming Encounters Date Type Department Care Team (Late st Contact Info) Description 08/24/2025 11:00 AM EDT Tele[facility]icine [facility] [place] [facility] [place] [address] [address] Selwyn Noel MD [address] [place] [phone] [email or web address] Health Maintenance Due Date Last Done Comments DEPRESSION SCREENING 1957 SMOKING Hx and SMOKELESS TOBACCO SCREENING 1958 HEPATITIS C SCREENING 1963 ZOSTER VACCINES (2 of 2) 01/04/2020 11/09/2019, 05/2012 RSV VACCINE (1 - 1-dose 75+ series) 2020 CREATININE LEVEL 09/24/2022 09/24/2021, 10/2021, 09/27/2020, Additional history exists POTASSIUM LEVEL 09/24/2022 09/24/2021, 10/2021, 09/27/2020, Additional history exists BLOOD PRESSURE 05/12/2024 11/12/2023 INFLUENZA VACCINE (#1) 2024 , 11/07/2022, 11/30/2021, Additional history exists COVID-19 VACCINE ( season) 2024 11/19/2023, 11/07/2022, 03/30/2022, Additional history exists LIPID PANEL 09/27/2025 09/27/2020 Adult Td,Tdap Booster 03/05/2032 03/05/2022, 004 PNEUMOCOCCAL VACCINES (50+ years) Completed 06/09/2016, 04/12/2014 HEPATITIS A VACCINES Aged Out No long er eligible based on patient's age to complete this topic HIB VACCINES Aged Out No longer eligi ble based on patient's age to complete this topic MENINGOCOCCAL VACCINES (ACWY) Aged Out No longer eligible based on patient's age to complete this topic MENINGOCOCCAL VACCINES (B) Aged Out N o longer eligible based on patient's age to complete this topic Medical Devices Implanted Type Area Civil Clerk Device Identifier Shelf Expiration Date Model / Serial / Lot Rtk Procedures Procedure Name Priority Date/Time Associated Diagnosis Comments COMPREHENSIVE METABOLIC PANEL Routine 09/24/2021 10:37 AM EDT Personal history of colon cancer, stage II LIPID PANEL Routine 09/27/2020 9:36 AM EDT PVD (peripheral vascular disease) from Last 3 Months or Most Recently Relevant to Health Maintenance Results * (ABNORMAL) Comprehensive metabolic panel (09/24/2021 10:37 AM EDT) SODIUM 134 133 - 146 mmol/L [facility] POTASSIUM 4.4 3.3 - 5.1 mmol/L [facility] CHLORIDE 99 96 - 108 mmol/L [facility] CO2 26 21 - 35 mmol/L [facility] BUN 11 6 - 19 mg/dL [facility] CREATININE 0.80 0.5 - 1.5 mg/dL [facility] GLUCOSE 104(H) 70 - 99 mg/dL [facility] ALBUMIN 4.0 3.9 - 4.8 g/dL [facility] TOTAL PROTEIN 7.4 6.5 - 8.0 g/dL [facility] CALCIUM 9.0 8.4 - 10.3 mg/dL [facility] ALKALINE PHOSPHATASE 87 39 - 117 U/L [facility] TOTAL BILIRUBIN 0.7 0.0 - 1.2 mg/dL [facility] AST 33 0 - 37 U/L [facility] ALT 17 0 - 40 U/L [facility] GLOBULIN 3.4 1 - 4.8 g/dL [facility] EGFR 92 >59 mL/min/1.7 3m2 [facility] Comment:Estimated glomerular filtration rate calculated using the CKD-EPI refit equation. ANION GAP 13 10 - 20 mmol/L [facility] Blood 09/24/2021 10:3 7 AM EDT 09/24/2021 10:39 AM EDT us Selwyn Noel MD LAB BLOOD ORDERABLES Final Result [facility] [address] [place] [address] * (ABNORMAL) Lipid panel (09/27/2020 9:36 AM EDT) HDL 65 mg/dL [facility] Comment: Interpretation <40 mg/dL: Low HDL cholesterol (major risk factor for CHD) Greater than or equal to 60 mg/dL: High HDL cholesterol ( negative risk factor for CHD) HDL - cholesterol is affected by a number of factors, e.g. smoking, excerise, hormones, sex and age. CHOLESTEROL 128 0 - 240 mg/dL [facility] TRIGLYCERIDES 66 30 - 160 mg/dL [facility] LDL 50 50 - 129 mg/dL [facility] Comment: LDL levels in terms of risk for coronary heart disease: <100 mg/dL: Optimal 100-129 mg/dL: Near or above optimal 130-159 mg/dL: Borderline high 160-189 mg/dL: High >190 mg/dL: Very High CARDIAC RISK RATIO 2.0(L) 3.4 - 5.0 [facility] Blood 09/27/2020 9:36 AM EDT 09/27/2020 9:39 AM EDT us Tiffany Florez DNP LAB BLOOD ORDERABLES Final Result Performing Organization Address City/State/[facility] Co de Phone Number [address] [address] from Last 3 Months or Most Recently Relevant to Health Maintenance Insurance Advance Directives For more information, please contact: [phone] (9AM - 5PM [facility], Thursday-Thursday) Documents on File Type Date Recorded Patient Software Specialist Expl anation Serious Illness Care 07/31/2016 1:16 PM Of fice visit: 07/03/16 Serious Illness Care 07/31/2016 1:16 PM Co lonoscopy report: 07/28/16 Serious Illness Care 07/31/2016 1:17 PM Acosta rgical pathology: 07/28/16 Serious Illness Care 07/31/2016 1:18 PM Jose Manuel zarate Serious Illness Care 08/01/2016 1:53 PM co [facility] path report 07/28/16 Serious Illness Care 08/04/2016 3:35 PM pa th 07/28/16 Serious Illness Care 08/05/2016 11:06 AM c olorectal new patient form Serious Illness Care 08/05/2016 11:07 AM l ab results 07/31/16 Serious Illness Care 08/05/2016 11:09 AM c olonoscopy report 07/28/16 Serious Illness Care 08/05/2016 11:09 AM s urgical path report 07/28/16 Serious Illness Care 08/05/2016 11:11 AM o ffice visit 07/03/16 Serious Illness Care 08/05/2016 11:13 AM s urgical path report 07/28/16 - continued Serious Illness Care 08/05/2016 11:15 AM r adiology report 06/05/14 Healthcare Proxy 08/19/2016 8:50 AM SIGNED ON 08/17/2016 * Full Code (Presumed) (Latest Code Status on File) Date Activated Date Inactivated Comments 08/18/2016 6:43 PM 08/20/2016 4:24 PM * Full Code (Presumed) Date Activated Date Inactivated Comments 08/18/2016 9:42 AM 08/18/2016 6:43 PM Care Teams Latent Fingerprint Examiner Relationship Specialty Start Date End Date Kerry Reyes DO [address] [place] [address] PCP - General Internal Medicine 07/02/23 Selwyn Noel MD [email or web address] Primary Oncologist Medical Oncology 10/06/16 Andi Cline MD [address] [place] [address] [email or web address] Referring Physician General Surgery 10/28/16 Dagoberto Delgado MD [address] [place] [address] [email or web address] 10/28/16 Additional Source Comments The information contained in this document represents components of the legal health record. It is not the complete legal health record.[facility]
--- OUTSIDE RECORDS SUMMARY | 2024-11-23 18:38 | XMS_ITS | Encounter Summary ---
Author Organization [facility] Address [address] [facility] [address] [place] [address] Phone Care Team Providers Care Dietary Cook Name Role Phone Selwyn Noel MD Unavailable [phone] Andi Cline MD Unavailable [phone] Dagoberto Delgado MD Unavailable [phone] Kerry Reyes DO Primary Care Provider [phone] Encounter Details Date Type Department Care Team (Late st Contact Info) Description 10/20/2023 Procedure Pass [facility], Ct Scan - [address] [id number] Social History Tobacco Use Types Packs/Day Years [...] AM EST documented as of this encounter Functional Status * Calculated C-SSRS Risk Score (Lifetime/Recent) Answer Date of Assessment Author No Risk Indicated 10/20/2023 8:09 PM EDT Kalpana León RN * [place] Suicide Severity Rating Scale (Screener/Recent Self-Report) Question Answer Date of Assessment Author 1. Wish to be (Past 1 Month) No 10/20/2023 8:09 PM EDT Carly Baugh RN 2. Non-Specific Active Suicidal Thoughts (Past 1 Month) No 10/20/2023 8:09 PM EDT Carly Baugh RN 6. Suicidal Behavior (Lifetime) No 10/20/2023 8:09 PM EDT Carly Baugh RN documented as of this encounter Plan of Treatment Upcoming Encounters Date Type Department Care Team (Late st Contact Info) Description 08/24/2025 11:00 AM EDT Telemedicine Center for Gastrointestinal Oncology, [facility] [place] at [address] [address] Selwyn Noel MD [address] [place] [address] [email or web address] documented as of this encounter Visit Diagnoses Not on filedocumented in this encounter Care Teams Dietary Cook Relationship Specialty Start Date End Date Kerry Reyes DO [address] [place] [address] PCP - General Internal Medicine 07/02/23 Selwyn Noel MD [email or web address] Primary Oncologist Medical Oncology 10/06/16 Andi Cline MD [address] [place] [address] [email or web address] Referring Physician General Surgery 10/28/16 Dagoberto Delgado MD [address] [place] [address] [email or web address] 10/28/16 documented as of this encounter Additional Source Comments The information contained in this document represents components of the legal health record. It is not the complete legal health record.[facility]
--- OUTSIDE RECORDS SUMMARY | 2024-11-23 18:38 | XMS_ITS | Encounter Summary ---
Author Organization [facility] Address [address] [place] [address] Phone Care Team Providers Care Head Girls Golf Coach Name Role Phone Reginald Delgado MD Primary Care Provider [phone] Selwyn Noel MD Unavailable [phone] Andi Cline MD Unavailable [phone] Dagoberto Delgado MD Unavailable [phone] Abdulkadir Gaming MD Primary Care Provider [phone] Kerry Reyes DO Primary Care Provider Encounter Details Date Type Department Care Team (Late st Contact Info) Description 01/23/2017 Procedure Pass [facility], [facility] [place] [place] [address] [facility], Floor [address] [place] [address] Social History Tobacco Use Types Packs/Day Years [...] AM EDT Telemedicine Center for Gastrointestinal Oncology, [facility] [place] [facility] [place] [address] [address] Selwyn Noel MD [address] [place] [address] [email or web address] documented as of this encounter Visit Diagnoses Not on filedocumented in this encounter Care Teams Head Girls Golf Coach Relationship Specialty Start Date End Date Reginald Delgado MD PCP - General Internal Medicine 07/30/16 04/16/17 Abdulkadir Gaming MD [address] [place] [address] PCP - General Internal Medicine 07/24/17 07/01/23 Kerry Reyes DO [address] [place] [address] PCP - General Internal Medicine 07/02/23 Selwyn Noel MD [email or web address] Primary Oncologist Medical Oncology 10/06/16 Andi Cline MD [address] [place] [address] [place] [address] [email or web address] Referring Physician General Surgery 10/28/16 Dagoberto Delgado MD [address] [address] [email or web address] 10/28/16 documented as of this encounter Additional Source Comments The information contained in this document represents components of the legal health record. It is not the complete legal health record.[facility]
--- OUTSIDE RECORDS SUMMARY | 2024-11-23 18:38 | XMS_ITS | Encounter Summary ---
Author Organization [facility] Address [address] [place] [address] [place] [address] Phone Care Team Providers Care Petroleum Terminal Plant Operator Name Role Phone Self-Referred, Patient Unavailable Unavailab Reginald Lord MD Primary Care Provider [phone] Selwyn Noel MD Unavailable [phone] Andi Cline MD Unavailable [phone] Dagoberto Delgado MD Unavailable [phone] Abdulkadir Gaming MD Primary Care Provider [phone] Kerry Reyes DO Primary Care Provider [phone] Encounter Details Date Type Department Care Team (Late st Contact Info) Description 08/08/2016 Procedure Pass [facility] [address] [place] [address] Social History Tobacco Use Types Packs/Day Years [...] Telemedicine Center for Gastrointestinal Oncology, [facility] [place] [facility] [place] [address] [facility] [address] [place] [address] Selwyn Noel MD [address] [place] [address] [email or web address] documented as of this encounter Visit Diagnoses Not on filedocumented in this encounter Care Teams Petroleum Terminal Plant Operator Relationship Specialty Start Date End Date Reginald Delgado MD PCP - General Internal Medicine 07/30/16 04/16/17 Abdulkadir Gaming MD [address] [place] [address] PCP - General Internal Medicine 07/24/17 07/01/23 Kerry Reyes DO [address] [place] [address] PCP - General Internal Medicine 07/02/23 Self-Referred, Patient Referring Physician 07/28/16 Selwyn Noel MD [email or web address] Primary Oncologist Medical Oncology 10/06/16 Andi Cline MD [address] [place] [address] [address] [facility] [place] [address] [email or web address] Referring Physician General Surgery 10/28/16 Dagoberto Delgado MD [address] [place] [address] [email or web address] 10/28/16 documented as of this encounter Additional Source Comments The information contained in this document represents components of the legal health record. It is not the complete legal health record.[facility]
--- OUTSIDE RECORDS SUMMARY | 2024-11-23 18:38 | XMS_ITS | Encounter Summary ---
Author Organization [facility] Address [address] [place] [address] Phone Care Team Providers Care Bulb Grower Name Role Phone Selwyn Noel MD Unavailable [phone] Andi Cline MD Unavailable [phone] Dagoberto Delgado MD Unavailable [phone] Abdulkadir Gaming MD Primary Care Provider [phone] Kerry Reyes DO Primary Care Provider [phone] Encounter Details Date Type Department Care Team (Late st Contact Info) Description 10/07/2019 Procedure Pass [facility], Ct Scan - [address] [address] Social History Tobacco Use Types Packs/Day Years [...] AM EDT [facility] [place] [facility] [place] [address] [facility] [address]th [place] [address] Selwyn Noel MD [address] [place] [address] [email or web address] documented as of this encounter Visit Diagnoses Not on filedocumented in this encounter Care Teams Bulb Grower Relationship Specialty Start Date End Date Abdulkadir Gaming MD [address] [place] [address] PCP - General Internal Medicine 07/24/17 07/01/23 Kerry Reyes DO [address] [place] [address] PCP - General Internal Medicine 07/02/23 Selwyn Noel MD [email or web address] Primary Oncologist Medical Oncology 10/06/16 Andi Cline MD [address] [place] [address] [address]rd [facility] [place] [address] [email or web address] Referring Physician General Surgery 10/28/16 Dagoberto Delgado MD [address] [place] [address] [email or web address] 10/28/16 documented as of this encounter Additional Source Comments The information contained in this document represents components of the legal health record. It is not the complete legal health record.[facility]
--- OUTSIDE RECORDS SUMMARY | 2024-11-23 18:38 | XMS_ITS | Encounter Summary ---
Author Organization [facility] Address [address] [place] [address] Phone Care Team Providers Care Strand Galvanizer Name Role Phone Selwyn Noel MD Unavailable [phone] Andi Cline MD Unavailable [phone] Dagoberto Delgado MD Unavailable [phone] Abdulkadir Gaming MD Primary Care Provider [phone] Kerry Reyes DO Primary Care Provider Encounter Details Date Type Department Care Team (Late Contact Info) Description 10/05/2020 Procedure Pass [facility], Ct Scan - [address] [address] Social History Tobacco Use Types Packs/Day Years [...] AM EDT [facility], [facility] [place] [facility] [place] [address] [address] Selwyn Noel MD [address] [place] [address] [email or web address] documented as of this encounter Visit Diagnoses Not on filedocumented in this encounter Care Teams Strand Galvanizer Relationship Specialty Start Date End Date Abdulkadir Gaming MD [address] [place] [address] PCP - General Internal Medicine 07/24/17 07/01/23 Kerry Reyes DO [address] [place] [address] PCP - General Internal Medicine 07/02/23 Selwyn Noel MD [email or web address] Primary Oncologist Medical Oncology 10/06/16 Andi Cline MD [address] [place] [address] [place] [address] [email or web address] Referring Physician General Surgery 10/28/16 Dagoberto Delgado MD [address] [place] [address] [email or web address] 10/28/16 documented as of this encounter Additional Source Comments The information contained in this document represents components of the legal health record. It is not the complete legal health record.[facility]
--- OUTSIDE RECORDS SUMMARY | 2024-11-23 18:38 | XMS_ITS | Encounter Summary ---
Author Organization [facility] Address [address] [place] [address] Phone Care Team Providers Care Carpenter Foreman Name Role Phone Selwyn Noel MD Unavailable [phone] Andi Cline MD Unavailable [phone] Dagoberto Delgado MD Unavailable [phone] Abdulkadir Gaming MD Primary Care Provider [phone] Kerry Reyes DO Primary Care Provider Encounter Details Date Type Department Care Team (Late st Contact Info) Description 07/03/2021 Procedure Pass [facility] Admitting Dept Virtual Department 30 [place], [place] [id number] Social History Tobacco Use Types Packs/Day Years [...] [facility], [facility] [place] [facility] [place] [address] [address] Selwyn Noel MD [address] [place] [address] [email or web address] documented as of this encounter Visit Diagnoses Not on filedocumented in this encounter Care Teams Carpenter Foreman Relationship Specialty Start Date End Date Abdulkadir Gaming MD [address] [place] [address] PCP - General Internal Medicine 07/24/17 07/01/23 Kerry Reyes DO [address] [place] [address] PCP - General Internal Medicine 07/02/23 Selwyn Noel MD [email or web address] Primary Oncologist Medical Oncology 10/06/16 Andi Cline MD [address] [place] [address] [address] [facility] [place] [address] [email or web address] Referring Physician General Surgery 10/28/16 Dagoberto Delgado MD [address] [place] [address] 10/28/16 documented as of this encounter Additional Source Comments The information contained in this document represents components of the legal health record. It is not the complete legal health record.[facility]
--- OUTSIDE RECORDS SUMMARY | 2024-11-23 18:38 | XMS_ITS | Encounter Summary ---
Author Organization [facility] Address [address] [facility] [address] [place] [address] Phone Care Team Providers Care Wholesale Diamond Broker Name Role Phone Selwyn Noel MD Unavailable [phone] Andi Cline MD Unavailable [phone] Dagoberto Delgado MD Unavailable [phone] Kerry Reyes DO Primary Care Provider [phone] Encounter Details Date Type Department Care Team (Late st Contact Info) Description 10/20/2023 Procedure Pass [facility], Ct Scan - [address] [id number] Social History Tobacco Use Types Packs/Day Years [...] 8:09 PM EDT Kalpana León RN * [place] Suicide Severity Rating Scale (Screener/Recent Self-Report) Question [...] AM EDT [facility], [facility] [place] at [address] [address] Selwyn Noel MD [address] [place] [address] [email or web address] documented as of this encounter Visit Diagnoses Not on filedocumented in this encounter Care Teams Wholesale Diamond Broker Relationship Specialty Start Date End Date Kerry Reyes DO [address] [place] [address] PCP - General Internal Medicine 07/02/23 Selwyn Noel MD [email or web address] Primary Oncologist Medical Oncology 10/06/16 Andi Cline MD [address] [place] [address] [email or web address] Referring Physician General Surgery 10/28/16 Dagoberto Delgado MD [address] [place] [address] [email or web address] 10/28/16 documented as of this encounter Additional Source Comments The information contained in this document represents components of the legal health record. It is not the complete legal health record.[facility]
== END 2024-11-23 15:22 | disposition home or self-care (01) ==
LOC: HO.HSMS 14:55
PROVIDERS: PCP Internal Medicine; Visit Provider Psychiatry & Neurology Neurology
DX: G90.3 Multi-system degeneration of the autonomic nervous system (principal); G47.33 Obstructive sleep apnea (adult) (pediatric)
CPT/HCPCS: 99214; G2211

== ENCOUNTER → 2024-11-23 14:54 | Outpatient (BNVA) | payer OTHER, SELFPAY | PROVIDERS: PCP Internal Medicine; Visit Provider Psychiatry & Neurology Neurology | DX: G90.3 Multi-system degeneration of the autonomic nervous system (principal); G47.33 Obstructive sleep apnea (adult) (pediatric); Z99.89 Dependence on other enabling machines and devices | CPT/HCPCS: 99212 ==